=== PATIENT | male | born 1945 | race Caucasian/White ===

== ENCOUNTER → 2016-09-28 | Outpatient (REF) | payer OTHER ==
[2016-09-28 13:40] LABS: RBC ADVIA BF 0.02; RBC CALC. BF 20000 (< 10mm3 cells/uL); WBC ADVIA BF 4.2; WBC CALC. BF 4200 cells/uL (0-20)
[2016-09-28 13:47] LABS: BF DIFF IF INDICATED? YES (NO); SYNOVIAL FLUID COLOR YELLOW (YELLOW)
[2016-09-28 13:49] LABS: CRYSTALS, BODY FLUID URIC ACID (NONE SEEN)
[2016-09-28 14:11] LABS: CC BF DIFF EXAM CYTOCENTRIFUGE
[2016-09-28 14:13] LABS: URIC ACID, BODY FLUID 4.8 MG/DL (NOT ESTABLISHED)
[2016-09-28 14:14] LABS: HCT SOURCE LFT ELBOW
== END ==
LOC: M LAB REF 13:06
PROVIDERS: ATTEND Orthopaedic Surgery
DX: M25.442 Effusion, left hand (principal)

== ENCOUNTER 2016-12-25 13:55 | Emergency (ER) | payer OTHER ==
[~2016-12-25] VITALS: Ht 172.7 cm; Wt 88.5 kg
[2016-12-25] MEDS ORDERED: ASPI81TA7 PO (14:18)
[2016-12-25] MEDS ORDERED: OXYC-517 PO (14:18)
[2016-12-25] MEDS ORDERED: META800T82 PO (14:18)
[2016-12-25] MEDS ORDERED: ATOR1TAB19 PO (14:18)
[2016-12-25] MEDS ORDERED: LISI10TA4 PO (14:18)
[2016-12-25] MEDS ORDERED: DOCQ100C PO (14:18)
[2016-12-25 16:18] LABS: BASO % 0.1 % (0.0-1.0); EOS # 0.1 K/mm3 (0.0-0.50); EOS % 0.8 % (0.0-3.0); LARGE UNSTAINED CELL # 0.3 K/mm3 (0.0-0.4); LARGE UNSTAINED CELL % 2.9 % (0.0-4.0); LYMPH # 2.1 K/mm3 (1.5-4.5); LYMPH % 15.3 % (24.0-44.0); MEAN CORPUSCULAR HEMOGLOBIN 29.5 pg (27.0-33.0); MEAN CORPUSCULAR VOLUME 89.3 fl (80.0-96.0); MONO # 1.1 K/mm3 (0.0-0.8); MONO % 9.4 % (0.0-5.0); NEUTROPHILS # 8.2 K/mm3 (1.8-7.7); NEUTROPHILS % 71.5 % (36.0-66.0); PLATELET COUNT, AUTOMATED 299 k/mm3 (150-450); RED CELL DISTRIBUTION WIDTH 14.5 % (11.5-14.5); WHITE BLOOD COUNT 11.5 K/mm3 (4.0-10.0)
[2016-12-25 16:38] LABS: ANION GAP 12 MEQ/L (8-16); BLOOD UREA NITROGEN 24 MG/DL (7-18); CALCIUM LEVEL 8.8 MG/DL (8.8-10.2); CARBON DIOXIDE LEVEL 20 MEQ/L (21-32); CHLORIDE LEVEL 103 MEQ/L (98-107); CREATININE FOR GFR 1.01 MG/DL (0.70-1.30); GLOMERULAR FILTRATION RATE > 60.0 (>42); GLUCOSE, FASTING 108 MG/DL (83-110); SODIUM LEVEL 135 MEQ/L (136-145)
--- NOTE | 2016-12-25 16:50 | REP ---
Left foot series: Four views. History: Swelling, nontraumatic pain. Question gout. Findings: Four views of the left foot demonstrate overall normal mineralization. There is prominent soft tissue swelling at the medial aspect of the first MTP joint. 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 There is an erosive arthropathy affecting the first MTP joint with spur formation and some erosive changes. There is plantar calcaneal spurring. Impression: Erosive arthropathy with spurring and somewhat radiopaque soft tissue swelling at the first MTP joint consistent with gouty arthropathy. Signed by Rigoberto Milner MD 12/26/2016 10:43 A
[2016-12-25 16:55] LABS: ERYTHROCYTE SEDIMENTATION RATE > 140 mm/hr (0-20); URIC ACID 6.3 MG/DL (3.5-7.2)
[2016-12-25 17:36] VITALS: BP 161/76
[2016-12-28 00:07] LABS: Lyme Disease IgG/IgM Antibodie <0.91 ISR (0.00-0.90); Lyme Disease IgM Ab Quantitati <0.80 index (0.00-0.79)
== END 2016-12-25 17:41 | disposition home or self-care (01) ==
LOC: M ED 15:50
DX: R60.0 Localized edema (principal); M79.672 Pain in left foot; M79.662 Pain in left lower leg; M25.572 Pain in left ankle and joints of left foot; Z96.652 Presence of left artificial knee joint; I10 Essential (primary) hypertension; M10.9 Gout, unspecified; Z79.899 Other long term (current) drug therapy; Z79.82 Long term (current) use of aspirin

== ENCOUNTER → 2016-12-25 | Outpatient (CLI) | payer OTHER ==
[~2016-12-25] MED LIST: ASPI81TA7 PO; ATOR1TAB19 PO; DOCQ100C PO; LISI10TA4 PO; META800T82 PO; OXYC-517 PO
--- NOTE | 2016-12-25 14:06 | REP ---
Left lower extremity Duplex Doppler venous ultrasound: Real time compression and duplex Doppler interrogation of the left lower extremity deep venous system is performed. The left common femoral, superficial femoral and popliteal veins are fully compressible with transducer pressure and demonstrate normal spontaneous and phasic flow, without evidence of deep venous thrombosis. Impression: No evidence of deep venous thrombosis of the left lower extremity femoral popliteal venous system. Signed by Raoul Gonzalez MD 12/25/2016 01:57 P
== END ==
LOC: M RAD 12:49
PROVIDERS: ATTEND Orthopaedic Surgery
DX: M79.605 Pain in left leg (principal)

== ENCOUNTER → 2017-05-29 | Outpatient (REF) | payer OTHER ==
[~2017-05-29] MED LIST changes: +ASPI1TAB15 PO; -ASPI81TA7 PO; +COLC1CAP PO; +META1TAB22 PO; -META800T82 PO
== END ==
LOC: M LAB REF 12:33
PROVIDERS: ATTEND Internal Medicine
DX: M10.9 Gout, unspecified (principal)

== ENCOUNTER → 2017-11-27 | Outpatient (CLI) | payer OTHER ==
[2017-11-27 18:21] LABS: THYROGLOBULIN ANTIBODY 22.1 U/ML (<60.0); TOTAL T3 75.7 NG/DL (60.0-181.0)
[2017-11-27 18:23] LABS: COMPLEMENT C4 31.3 MG/DL (10-40); RHEUMATOID FACTOR QUANT < 10.0 IU/ML (0-15.0); THYROXINE (T4) 8.5 UG/DL (4.5-12.0)
[2017-11-27 18:23] LABS: COMPLEMENT C3 136 MG/DL (90-180)
== END ==
LOC: M SMT 12:04
DX: T78.3XXA Angioneurotic edema, initial encounter (principal)

== ENCOUNTER → 2018-06-13 | Outpatient (REF) | payer OTHER ==
[2018-06-13 13:39] LABS: URIC ACID 7.5 MG/DL (3.5-7.2)
== END ==
LOC: M LAB REF 12:48
DX: M10.9 Gout, unspecified (principal)

== ENCOUNTER → 2018-07-05 | Outpatient (CLI) | payer OTHER ==
[2018-07-05 13:45] LABS: URIC ACID 7.8 MG/DL (3.5-7.2)
== END ==
LOC: M WUC 11:07
DX: R22.32 Localized swelling, mass and lump, left upper limb (principal)
CPT/HCPCS: 84550

== ENCOUNTER → 2018-12-30 | Outpatient (REF) | payer OTHER ==
[~2018-12-30] MED LIST changes: -DOCQ100C PO; +DOCQ100C5 PO
[2018-12-30 19:29] LABS: PERCENT SATURATION 22.6 % (19.7-50.0)
== END ==
LOC: M LAB REF 17:28
PROVIDERS: ATTEND Internal Medicine
DX: D64.9 Anemia, unspecified (principal)

== ENCOUNTER → 2019-10-21 | Outpatient (REF) | payer OTHER ==
[2019-10-21 14:01] LABS: BASO # 0.1 10^3/uL (0.0-0.2); BASO % 0.5 % (0.0-1.0); EOS # 0.3 10^3/uL (0.0-0.5); EOS % 2.3 % (0.0-3.0); HEMATOCRIT 38.4 % (42.0-52.0); HEMOGLOBIN 12.4 g/dl (13.5-17.5); LYMPH # 1.8 10^3/uL (1.5-5.0); LYMPH % 16.4 % (24.0-44.0); MEAN CORPUSCULAR HEMOGLOBIN 29.4 pg (27.0-33.0); MEAN CORPUSCULAR HGB CONC 32.3 g/dl (32.0-36.5); MONO # 1.2 10^3/uL (0.0-0.8); MONO % 10.5 % (0.0-5.0); NEUTROPHILS # 7.8 10^3/uL (1.5-8.5); NEUTROPHILS % 69.7 % (36.0-66.0); PLATELET COUNT, AUTOMATED 352 10^3/uL (150-450); RED BLOOD COUNT 4.22 10^6/uL (4.30-6.10); WHITE BLOOD COUNT 11.2 10^3/uL (4.0-10.0)
[2019-10-21 14:48] LABS: ERYTHROCYTE SEDIMENTATION RATE 60 mm/hr (0-20)
== END ==
LOC: M LABDRAW1 10:55
PROVIDERS: ATTEND Orthopaedic Surgery
DX: M70.21 Olecranon bursitis, right elbow (principal)

== ENCOUNTER → 2019-10-28 | Outpatient (REF) | payer OTHER ==
[2019-10-28 13:03] LABS: BASO # 0.1 10^3/uL (0.0-0.2); BASO % 0.6 % (0.0-1.0); EOS # 0.2 10^3/uL (0.0-0.5); EOS % 2.3 % (0.0-3.0); HEMATOCRIT 39.5 % (42.0-52.0); HEMOGLOBIN 12.7 g/dl (13.5-17.5); LYMPH # 1.9 10^3/uL (1.5-5.0); LYMPH % 19.4 % (24.0-44.0); MEAN CORPUSCULAR HEMOGLOBIN 28.5 pg (27.0-33.0); MEAN CORPUSCULAR HGB CONC 32.2 g/dl (32.0-36.5); MEAN CORPUSCULAR VOLUME 88.8 fl (80.0-96.0); MONO # 0.7 10^3/uL (0.0-0.8); MONO % 6.9 % (0.0-5.0); NEUTROPHILS % 70.5 % (36.0-66.0); PLATELET COUNT, AUTOMATED 389 10^3/uL (150-450); RED BLOOD COUNT 4.45 10^6/uL (4.30-6.10)
[2019-10-28 13:26] LABS: C REACTIVE PROTEIN QUANTITATIV 2.84 MG/DL (0.00-0.30); URIC ACID 4.9 MG/DL (3.5-7.2)
[2019-10-28 13:27] LABS: ERYTHROCYTE SEDIMENTATION RATE 59 mm/hr (0-20)
== END ==
LOC: M LABDRAW1 10:51
PROVIDERS: ATTEND Orthopaedic Surgery
DX: M70.21 Olecranon bursitis, right elbow (principal)

== ENCOUNTER → 2020-07-16 | Outpatient (CLI) | payer OTHER ==
[~2020-07-16] MED LIST changes: +AMLO25TA PO; +ASPI-546 PO; -ASPI1TAB15 PO; +INDO50CA91 PO
== END ==
LOC: M LABSMTC 09:08
PROVIDERS: ATTEND Anesthesiology
DX: Z01.818 Encounter for other preprocedural examination (principal); Z20.828 Contact with and (suspected) exposure to other viral communicable diseases
CPT/HCPCS: C9803; U0003

== ENCOUNTER 2020-07-21 08:44 | Day surgery (SDC) | payer OTHER ==
[~2020-07-21] VITALS: Ht 170.2 cm; Wt 90.2 kg
[~2020-07-21 08:44] MED LIST changes: +NS 1,000 ML IV ONE
[2020-07-21] MEDS ORDERED: propofoL 200 MG/20 ML VIAL As Ordered ONE (08:51)
[2020-07-21] MEDS ORDERED: LIDOCAINE 2% 100MG/5ML SDV (FOR ANES.) As Ordered ONE (08:51)
--- NOTE | 2020-07-21 10:19 | ROOR ---
Patient Name: Kermit Solano Procedure Date: 07/21/2020 9:55 AM Date of : 1945 Age: 75 Room: [facility] Gender: Male Note Status: Finalized Procedure: Colonoscopy Indications: High risk colon cancer surveillance: Personal history of colonic polyps Providers: Taran Bañuelos Jr, MD Referring MD: HERMES DUVALL JR, MD Requesting Provider: Medicines: Propofol per Anesthesia Complications: No immediate complications. Procedure: Pre-Anesthesia Assessment: - Prior to the procedure, a History and Physical was performed, and patient medications and allergies were reviewed. The patient is competent. The risks and benefits of the procedure and the sedation options and risks were discussed with the patient. All questions were answered and informed consent was obtained. Patient identification and proposed procedure were verified by the physician and the nurse in the pre-procedure area and in the procedure room. Mental Status Examination: alert and oriented. Airway Examination: normal oropharyngeal airway and neck mobility. Respiratory Examination: clear to auscultation. CV Examination: normal. ASA Grade Assessment: II - A patient with mild systemic disease. After reviewing the risks and benefits, the patient was deemed in satisfactory condition to undergo the procedure. The anesthesia plan was to use moderate sedation / analgesia (conscious sedation). Immediately prior to administration of medications, the patient was re-assessed for adequacy to receive sedatives. The heart rate, respiratory rate, oxygen saturations, blood pressure, adequacy of pulmonary ventilation, and response to care were monitored throughout the procedure. The physical status of the patient was re-assessed after the procedure. The Colonoscope was introduced through the anus and advanced to the cecum, identified by appendiceal orifice and ileocecal valve. The colonoscopy was performed without difficulty. The patient tolerated the procedure well. Findings: The rectum, recto-sigmoid colon, descending colon, cecum, appendiceal orifice and ileocecal valve appeared normal. Two sessile polyps were found in the transverse colon and ascending colon. The polyps were diminutive in size. These polyps were removed with a jumbo cold forceps. Resection and retrieval were complete. A few small-mouthed diverticula were found in the sigmoid colon. Impression: - The rectum, recto-sigmoid colon, descending colon, cecum, appendiceal orifice and ileocecal valve are normal. - Two diminutive polyps in the transverse colon and in the ascending colon, removed with a jumbo cold forceps. Resected and retrieved. - Diverticulosis in the sigmoid colon. Recommendation: - Discharge patient to home (ambulatory). - Repeat colonoscopy in 5 years for surveillance. Taran Bañuelos MD Taran Bañuelos Jr, MD 07/21/2020 10:19:08 AM Electronically signed by Taran Bañuelos Jr, MD Number of Addenda: 0 Note Initiated On: 07/21/2020 9:55 AM Estimated Blood Loss: Estimated blood loss: none.
[2020-07-21 10:45] VITALS: BP 145/82
== END 2020-07-21 10:56 | disposition home or self-care (01) ==
LOC: M OPP 08:44
PROVIDERS: ATTEND Surgery
DX: Z86.010 Personal history of colon polyps (principal); Z09 Encounter for follow-up examination after completed treatment for conditions other than malignant neoplasm; D12.6 Benign neoplasm of colon, unspecified; K57.30 Diverticulosis of large intestine without perforation or abscess without bleeding; Z79.82 Long term (current) use of aspirin; Z79.899 Other long term (current) drug therapy

== ENCOUNTER → 2023-11-13 | Outpatient (REF) | payer OTHER ==
[~2023-11-13] MED LIST changes: +LISI10TA22 PO; -LISI10TA4 PO; -NS 1,000 ML IV ONE
== END ==
LOC: M SFHCDERM 17:37
PROVIDERS: ATTEND Physician Assistant
DX: D49.2 Neoplasm of unspecified behavior of bone, soft tissue, and skin (principal)

== ENCOUNTER → 2024-02-13 | Outpatient (CLI) | payer OTHER | LOC: M PLAIMG 08:50 | PROVIDERS: ATTEND Internal Medicine | DX: I48.91 Unspecified atrial fibrillation (principal) ==

== ENCOUNTER 2025-08-24 09:54 | Day surgery (SDC) | payer OTHER ==
[~2025-08-24] VITALS: Ht 172.7 cm; Wt 91.6 kg
[~2025-08-24 09:54] MED LIST changes: +ELIQ5TAB; +META-10 PO; -META1TAB22 PO; +METO1TAB32
[2025-08-24] MEDS ORDERED: LIDOCAINE 2% 100 MG/5 ML SDV (FOR ANES.) As Ordered ONE (10:59)
[2025-08-24] MEDS ORDERED: LABETALOL 100 MG/20 ML VIAL As Ordered ONE (11:06)
[2025-08-24 11:25] VITALS: TEMP 97.3
[2025-08-24 11:46] VITALS: BP 142/70; O2SAT 96
== END 2025-08-24 11:54 | disposition home or self-care (01) ==
LOC: M OPP 09:54
PROVIDERS: ATTEND Surgery
DX: D12.6 Benign neoplasm of colon, unspecified (principal); K57.30 Diverticulosis of large intestine without perforation or abscess without bleeding; Z86.0100 Personal history of colon polyps, unspecified; I48.91 Unspecified atrial fibrillation; Z79.01 Long term (current) use of anticoagulants; Z79.899 Other long term (current) drug therapy
CPT/HCPCS: 45385; 88305; J1920